=== PATIENT | female | born 1930 | race Caucasian/White ===

== ENCOUNTER 2017-09-09 14:44 | Day surgery (SDC) | payer MEDICARE ==
[2017-09-08 12:52] VITALS: BMI 24.2
[2017-09-09] MEDS ORDERED: Ondansetron HCl/PF 4 MG/2 ML Vial ONE (14:48)
[2017-09-09] MEDS ORDERED: Propofol 200 MG/20 ML VIAL ONE (14:48)
[2017-09-09] MEDS ORDERED: Lidocaine 1% PF 5 ML VIAL ONE (14:48)
[2017-09-09 15:16] LABS: Hemoglobin 12.8 g/dL (12.0-16.0); Platelet Count 121 thou/uL (130-400)
[2017-09-09 15:38] LABS: Anion Gap 10 mmol/L (10-20); BUN (Urea Nitrogen) 9 mg/dL (9.8-20.1); Calc. Creatinine Clearance 55 mL/min (70-130); Calcium 10.1 mg/dL (7.8-10.44); Carbon Dioxide 26 mmol/L (23-31); Chloride 106 mmol/L (98-107); Estimated GFR-MDRD 87; Glucose 86 mg/dL (83-110); Potassium 4.1 mmol/L (3.5-5.1); Sodium 138 mmol/L (136-145)
[2017-09-09] MEDS ORDERED: Lidocaine 1% w/Epinephrine 1:200K 30 ML VIAL ONE (15:57)
[2017-09-09] MEDS ORDERED: Fentanyl 250 MCG/5 ML VIAL ONE ×2 (16:09→17:30)
[2017-09-09] MEDS ORDERED: Midazolam HCl 2 mg/2 ml Vial ONE (16:09)
[2017-09-09] MEDS ORDERED: Labetalol HCl 100 MG/20 ML VIAL ONE (18:49)
[2017-09-09] MEDS ORDERED: Morphine 2 MG/ML SYRINGE ONE (19:20)
[2017-09-09] MEDS ORDERED: Hydrocodone-Acetamin 15 ML UDCUP ONE (20:16)
--- NOTE | 2017-09-13 12:37 | OP ---
DATE OF PROCEDURE: 09/09/2017 PREOPERATIVE DIAGNOSES: Bilateral parathyroid adenomas. PROCEDURE PERFORMED: Neck exploration with removal of bilateral parathyroid adenomas using laryngeal nerve monitoring. FINDINGS: The patient had 2 small parathyroid glands that were found to be hypercellular on opposite sides of the neck. The patient had an extremely atrophic thyroid gland being based on years of Synt hroid use. PROCEDURE IN DETAIL: After consent was obtained, the patient was identified, brought to the operatin g room and placed on the operating room table in supine position. Laryngeal nerve monitoring endotra cheal tube was placed and the patient was prepped and draped for surgery after consent was obtained. The lower neck crease was identified and infiltrated with 1% lidocaine and with a #10 blade we made a skin incision and carried down through the skin, subcutaneous tissues and platysma. Hemostasis wa s obtained and subplatysmal flaps were elevated. We then divided the strap muscles in the midline to find an extremely atrophic thyroid gland. Exploration on both sides of the neck revealed the recurr ent laryngeal nerve and all 4 parathyroid glands. The parathyroid gland was removed and sent for his tologic evaluation, it came back with hypercellular consistent with adenoma. We then explored the ri ght side where a similarly we removed the larger of the 2 parathyroid glands. Again, this was consis tent with hypercellular. Hemostasis was obtained. Attention was turned to closing the wound. The t issues were reapproximated using absorbable suture and Monocryl was used to close the dermis with a r unning subcuticular stitch closed the skin and a sterile dressing was applied. The patient was awake preston with a strong voice and a normal PTH.
--- NOTE | 2017-09-14 20:11 | EKG ---
Test Reason : PREOP Blood Pressure : / mmHG Vent. Rate : 059 BPM Atrial Rate : 059 BPM P-R Int : 182 ms QRS Dur : 080 ms QT Int : 404 ms P-R-T Axes : 035 -06 048 degrees QTc Int : [address] abnormality, possible digitalis effect Abnormal ECG No previous ECGs available Confirmed by SAEED KIRKLAND (2) on 09/14/2017 8:11:25 PM Referred By: THELMA Confirmed By:SAEED KIRKLAND
== END 2017-09-09 21:20 | disposition home or self-care (01) ==
LOC: SDC 14:44
PROVIDERS: ATTEND Specialist
PROC: 0GTQ0ZZ Resection of Multiple Parathyroid Glands, Open Approach (ICD-10-PCS; principal; 2017-09-09)
DX: D35.1 Benign neoplasm of parathyroid gland (principal); E03.9 Hypothyroidism, unspecified; M85.80 Other specified disorders of bone density and structure, unspecified site; F41.9 Anxiety disorder, unspecified; F32.9 Major depressive disorder, single episode, unspecified; M19.90 Unspecified osteoarthritis, unspecified site; K21.9 Gastro-esophageal reflux disease without esophagitis; Z88.5 Allergy status to narcotic agent; Z79.899 Other long term (current) drug therapy
CPT/HCPCS: 36415; 80048; 85014; 85018; 85049; 88305; 88331; 88334; 93005; 93010; 96374; J2001; J2250; J2270; J2405; J2704; J3010